=== PATIENT | female | born 1980 ===

== ENCOUNTER 2017-06-15 13:11 | Emergency (ER) | payer OTHER ==
[2017-06-15 13:12] VITALS: BMI 26.9
[2017-06-15 13:25] VITALS: RESP 20; TEMP 98.3; O2SAT 99
[2017-06-15] MEDS ORDERED: Sodium Chloride 0.9% 1,000 ML IV ONE (14:02)
[2017-06-15 14:20] LABS: BASO % 0.6 % (0.0-2.0); EOS # 0.1 K/uL (0.0-0.7); EOS % 2.6 % (0.0-4.0); HEMOGLOBIN 13.3 g/dL (11.0-16.0); LYMPH # 1.6 K/uL (1.0-4.3); LYMPH % 27.2 % (20.0-40.0); MEAN CELL VOLUME 86.3 fL (81.0-99.0); MEAN CORPUSCULAR HEMOGLOBIN 28.7 pg (27.0-31.0); MEAN CORPUSCULAR HGB CONC 33.3 g/dL (33.0-37.0); MEAN PLATELET VOLUME 8.3 fL (7.2-11.7); MONO # 0.4 K/uL (0.0-0.8); MONO % 6.8 % (0.0-10.0); NEUT # 3.6 K/uL (1.8-7.0); NEUT % 62.8 % (50.0-75.0); RBC 4.64 Mil/uL (3.80-5.20); RED CELL DISTRIBUTION WIDTH 14.1 % (11.5-14.5); WHITE BLOOD COUNT 5.7 K/uL (4.8-10.8)
[2017-06-15] MEDS ORDERED: Sodium Chloride 0.9% 1,000 ML ONE (14:24)
[2017-06-15 14:36] LABS: ALB/GLOB RATIO 1.2 (1.0-2.1); ALBUMIN 4.3 g/dL (3.5-5.0); ALT/SGPT 7 U/L (9-52); AST/SGOT 23 U/L (14-36); BLOOD UREA NITROGEN 15 mg/dL (7-17); CALCIUM 8.9 mg/dl (8.6-10.4); GFR AFRICAN-AMERICAN > 60; GFR NON-AFRICAN AMERICAN > 60
[2017-06-15 15:43] VITALS: BP 119/81; PULSE 89
--- NOTE | 2017-06-15 16:56 | C.PDOC ---
History Of Present Illness 36 year old female presents to the ED for evaluation of generalized weakness which began 3 days ago. Patient states she was recently diagnosed with MS, but has been unable to fill the prescriptions for her MS medication secondary to insurance issues. Patient is scheduled for an appointment with a neurologist in the near future. She denies cough, chest pain, shortness of breath, abdominal pain, nausea, and vomiting. Chief Complaint (Nursing): Weakness/Neurological Deficit History Per: Patient History/Exam Limitations: no limitations Onset/Duration Of Symptoms: Days (3) Current Symptoms Are (Timing): Still Present Associated Symptoms Preceding Syncopal Episode: No Predromal Symptoms (Sudden Onset) Additional History Per: Patient Past Medical History Reviewed: Historical Data, Nursing Documentation, Vital Signs Vital Signs: Last Vital Signs Temp 98.3 F 06/15/17 13:23 Pulse 89 06/15/17 15:41 Resp 20 06/15/17 15:41 BP 119/81 06/15/17 15:41 Pulse Ox 99 06/15/17 17:27 - Medical History PMH: No Chronic Diseases Surgical History: No Surg Hx Family History: States: Unknown Family Hx - Social History Hx Alcohol Use: No Hx Substance Use: No - Immunization History Hx Tetanus Toxoid Vaccination: No Hx Influenza Vaccination: No Hx Pneumococcal Vaccination: No Review Of Systems Constitutional: Positive for: Weakness Respiratory: Negative for: Cough, Shortness of Breath Gastrointestinal: Negative for: Nausea, Vomiting, Abdominal Pain Physical Exam - Physical Exam Appears: Non-toxic, No Acute Distress Skin: Normal Color, Warm, Dry Head: Atraumatic, Normacephalic Eye(s): bilateral: Normal Inspection Oral Mucosa: Moist Neck: Supple Chest: Symmetrical, No Deformity, No Tenderness Cardiovascular: Rhythm Regular, No Murmur Respiratory: Normal Breath Sounds, No Rales, No Rhonchi, No Wheezing Extremity: Normal ROM, Capillary Refill (less than 2 seconds ) Neurological/Psych: Oriented x3, Normal Speech, Normal Cognition Gait: Steady ED Course And Treatment - Laboratory Results Result Diagrams: 06/15/17 14:15 06/15/17 14:15 O2 Sat by Pulse Oximetry: 99 (on RA) Pulse Ox Interpretation: Normal Medical Decision Making Medical Decision Making: Impression: 36 y/o female with generalized weakness Plan: * bloodwork * Flexeril PO * Toradol IVP * IV Fluids * reassess and disposition Progress: Bloodwork ordered and reviewed. Flexeril PO, Toradol IVP, and IV Fluids administered. On reassessment, patient is resting comfortably, showing no signs of distress and is stable for discharge. Patient is advised to f/u with her PMD and keep her appointment with neurologist. Advised to return to the ED if symptoms persist or worsen. Disposition - Disposition Referrals: [facility] [Outside] [facility] [Outside] Disposition: HOME/ ROUTINE Disposition Time: 14:40 Condition: GOOD Additional Instructions: Thank you for letting us take care of you today. The emergency medical care you received today was directed at your acute symptoms. If you were prescribed any medication, please fill it and take as directed. It may take several days for your symptoms to resolve. Return to the Emergency Department if your symptoms worsen, do not improve, or if you have any other problems. Please contact your doctor or call one of the physicians/clinics you have been referred to that are listed on the Patient Visit Information form that is included in your discharge packet. Bring any paperwork you were given at discharge with you along with any medications you are taking to your follow up visit. Our treatment cannot replace ongoing medical care by a primary care provider (PCP) outside of the emergency department. Thank you for allowing the [facility] team to be part of your care today. Follow up with your neurologist as scheduled for further management. Follow up with the clinic this week for re-evaluation and further management. Rene por dejarnos atenderlo hoy. La atencin mdica de emergencia que recibi hoy estaba dirigida a koki sntomas agudos. Si le prescribieron algn medicamento, llnelo y tome segn las indicaciones. Koki sntomas pueden tardar varios underwood en resolverse. Regrese al Departamento de Emergencia si koki s ntomas empeoran, no mejoran o si tiene algn otro problema. Comunquese con barrow mdico o llame a kym de los mdicos / clnicas a los que shaw sido referido que figura en el formulario de Informacin de visita del paciente que se incluye en barrow paquete de beatriz. Traiga todos los documentos que recibi al momento del beatriz junto con los medicamentos que est tomando en barrow visita de seguimiento. Nuestro tratamiento no puede reemplazar la atencin mdica en curso por parte de un proveedor de atencin primaria (PCP) fuera del departamento de emergencias. Rene por permitir que el equipo de [facility] [employer] sea parte de barrow cuidado hoy. Pratibha un seguimiento con barrow neurlogo segn lo programado para melvin mayor administracin. Pratibha un seguimiento con la clnica esta semana para melvin reevaluacin y administracin adicional. Prescriptions: Ibuprofen [Motrin] 600 mg PO Q6 PRN #20 tab PRN Reason: Pain, Moderate (4-7) Instructions: Multiple Sclerosis, Adult (DC), Weakness (ED) Forms: Gen Discharge Inst Bengali, [facility] (Bengali) Print Language: PERSIAN - Clinical Impression Clinical Impression: Weakness - Scribe Statement The provider has reviewed the documentation as recorded by the Scribe (Janeth Bar) Provider Attestation: All medical record entries made by the Scribe were at my direction and personally dictated by me. I have reviewed the chart and agree that the record accurately reflects my personal performance of the history, physical exam, medical decision making, and the department course for this patient. I have also personally directed, reviewed, and agree with the discharge instructions and disposition.
== END 2017-06-15 15:45 | disposition home or self-care (01) ==
LOC: C.ER 13:11
DX: R53.1 Weakness (principal)
CPT/HCPCS: 80053; 85025; 96361; 96374; 99285; J1885; J7040